=== PATIENT | female | born 1950 | race Caucasian/White ===

== ENCOUNTER 2020-02-25 12:48 | Outpatient (CLI) | payer MEDICARE, OTHER ==
--- NOTE | 2020-02-25 16:00 | MRI Report ---
PROCEDURE: Shoulder LT W/O INDICATIONS: LT SHOULDER BURSITIS TECHNIQUE: Noncontrast oblique coronal T2 fast spin echo with fat saturation, oblique sagittal T1 spin echo and T2 fast spin echo with fat saturation, axial T1 spin echo and T2 fast spin echo with fat saturation t hrough the shoulder. COMPARISON: None. FINDINGS: Image quality: Diagnostic. Rotator cuff: There is moderate to severe tendinosis of the distal supraspinatus and infraspinatus t endons without a definite discrete tear. The teres minor tendon is intact. There is moderate tendinos is and focal moderate grade intrasubstance tearing of the subscapularis tendon at the superior insert ion. There is no significant rotator cuff muscle atrophy. Bones and bursae: No acute bone marrow contusions or fractures. Chronic traction cystic changes are seen at the posterosuperior humeral head. There is minimal degenerative spurring of the glenoid rim. Mild to moderate degenerative changes are seen at the acromioclavicular joint. There is trace subacro mial/subdeltoid bursal fluid. A medium-sized glenohumeral joint effusion is present with mild synovi al hypertrophy. Capsule and soft tissues: There is degeneration and nondisplaced tearing of the anterior to the supe rior and posterosuperior labrum. No paralabral cyst is seen. There is degeneration of the posteroinfe rior labrum. The long head of the biceps tendon demonstrates mild tendinosis of the intra-articular portion. There is partial effacement of the normal fat signal in the rotator interval. The inferior glenohume ral ligament is normal in thickness. IMPRESSION: 1. Moderate to severe tendinosis of the distal supraspinatus and infraspinatus tendons. 2. Small moderate-grade partial intrasubstance tearing of the subscapularis tendon at the superior i nsertion superimposed on moderate tendinosis. 3. Nondisplaced tearing of the superior labrum from the anterior to the posterosuperior region. Mild intrasubstance degeneration of the posteroinferior labrum. 4. Mild tendinosis of the biceps long head tendon. 5. Mild to moderate acromioclavicular joint osteoarthrosis. 6. Medium-sized glenohumeral effusion with moderate synovial hypertrophy. Reviewed by: Ramón Oliva MD on 02/25/2020 3:59 PM PST Approved by: Ramón Oliva MD on 02/25/2020 3:59 PM PST Station ID: [id number]
== END 2020-02-25 12:49 | disposition home or self-care (01) ==
LOC: DI 12:48
PROVIDERS: ATTEND Orthopaedic Surgery
DX: M75.82 Other shoulder lesions, left shoulder (principal); M75.112 Incomplete rotator cuff tear or rupture of left shoulder, not specified as traumatic; S43.432A Superior glenoid labrum lesion of left shoulder, initial encounter